=== PATIENT | female | born 1935 | race Caucasian/White ===

== ENCOUNTER 2025-03-20 17:06 | Inpatient (IN) | payer MEDICARE, OTHER, SELFPAY ==
[2025-03-19] VITALS (13 sets, daily range): BP systolic 141–204; BP diastolic 91–114; PULSE 66–76; BMI 25.5; BMI 26.9
--- NOTE | 2025-03-19 14:13 | ED.GENMED ---
History of Present Illness
<LISANDRA Merritt - Last Filed: 03/19/25 17:13>
General
Chief Complaint: Fainting/Passed Out
Source: patient
Exam Limitations: none
Time Seen by Provider: 03/19/25 14:11
Nursing documentation reviewed up to this point in time: agreed with
History of Present Illness
History of Present Illness:
89 yr. old female presents to the ED for evaluation. Daughter reports pt has 'passed out' three times in the past one month. Last night pt was apparently walking her dog and her found her on the ground outside. Pt has no PMH. per
daughter pt has had some memory isssues and is a difficulty historian. Pt describes feeling lightheaded prior to sympoms start. Denies any chest pain or palpitations prior to events PT is a poor historian.
Past History
<LISANDRA Merritt - Last Filed: 03/19/25 17:13>
Past History
ED Past Medical History: HTN
ED Past Surgical History: Appendectomy, and Gynecological (Hysterectomy)
Phy Exam
<LISANDRA Merritt - Last Filed: 03/19/25 17:13>
General Physical Exam
General Presentation: no apparent distress
General age: appears stated age
General Skin: warm and dry
General Habitus: elderly
General Mental: alert
General Hydration: appears well hydrated
Course
<LISANDRA Merritt - Last Filed: 03/19/25 17:13>
Orders/Labs/Results
Orders:
Orders
03/19/25 13:34
Electrocardiogram (*1) Urgent
Reason for Study: Syncope
03/19/25 13:35
EKG- Treatment ONCE
03/19/25 13:55
Complete Blood Count/With Diff Urgent
Comprehensive Metabolic Panel Urgent
Troponin I Urgent
03/19/25 14:23
CT Head W/o Iv Contrast Urgent
Comment:
Reason For Exam: syncope
03/19/25 14:48
Orthostatic VS- Treatment ONCE
03/19/25 15:17
0.9% Sodium Chloride 1000 ml [Nss] 1,000 ml IV BOLUS
03/19/25 15:29
UA Reflex to Culture [Urinalysis Reflex To Culture] Urgent
Date Specimen was Collected: 03/19/25
Time Specimen was Collected: 15:23
Abnormal Lab Results
03/19/25
13:55
MCH 31.2 H pg
(27.0-31.0)
MCHC 31.8 L g/dL
(33.0-37.0)
Lymphocytes % 19.7 L %
(20.5-51.1)
BUN 18 H mg/dl
(7-17)
Glucose 110 H mg/dl
(70-99)
03/19/25 13:55
03/19/25 13:55
Vital Signs
Initial and Last Documented VS:
Initial Vital Signs
Temp Pulse Resp BP Pulse Ox
98.3 F 81 20 198/114 96
03/19/25 13:30 03/19/25 13:30 03/19/25 13:30 03/19/25 13:30 03/19/25 13:30
Last Documented Vital Signs
Temp Pulse Resp BP Pulse Ox
98.3 F 87 20 184/97 96
03/19/25 13:30 03/19/25 16:45 03/19/25 16:45 03/19/25 15:14 03/19/25 16:15
Laser Print Operator consulted with Physician
Laser Print Operator consulted with physician?: Yes
Name of Physician Consulted: Eligio
<Gumaro Del Valle, DO - Last Filed: 03/19/25 15:32>
Orders/Labs/Results
Orders:
Orders
03/19/25 13:34
Electrocardiogram (*1) Urgent
Reason for Study: Syncope
03/19/25 13:35
EKG- Treatment ONCE
03/19/25 13:55
Complete Blood Count/With Diff Urgent
Comprehensive Metabolic Panel Urgent
Troponin I Urgent
03/19/25 14:23
CT Head W/o Iv Contrast Urgent
Comment:
Reason For Exam: syncope
03/19/25 14:48
Orthostatic VS- Treatment ONCE
03/19/25 15:17
0.9% Sodium Chloride 1000 ml [Nss] 1,000 ml IV BOLUS
03/19/25 15:29
UA Reflex to Culture [Urinalysis Reflex To Culture] Urgent
Date Specimen was Collected: 03/19/25
Time Specimen was Collected: 15:23
Abnormal Lab Results
03/19/25
13:55
MCH 31.2 H pg
(27.0-31.0)
MCHC 31.8 L g/dL
(33.0-37.0)
Lymphocytes % 19.7 L %
(20.5-51.1)
BUN 18 H mg/dl
(7-17)
Glucose 110 H mg/dl
(70-99)
03/19/25 13:55
03/19/25 13:55
Vital Signs
Initial and Last Documented VS:
Initial Vital Signs
Temp Pulse Resp BP Pulse Ox
98.3 F 81 20 198/114 96
03/19/25 13:30 03/19/25 13:30 03/19/25 13:30 03/19/25 13:30 03/19/25 13:30
Last Documented Vital Signs
Temp Pulse Resp BP Pulse Ox
98.3 F 87 20 184/97 96
03/19/25 13:30 03/19/25 16:45 03/19/25 16:45 03/19/25 15:14 03/19/25 16:15
<LISANDRA Merritt - Last Filed: 03/19/25 17:13>
MDM/Problems Addressed
Differential Diagnosis Includes:
Not limited to syncope, arrhythmia, head injury
MDM/Problems Addressed:
Patient is an 89-year-old female who presents for evaluation of syncope that occurred last night. Patient has had 3 syncopal episodes in the past several weeks/1 month. Patient is awake alert poor historian daughter reports mild memory issues she
does live at home with her . No obvious head injury CT head negative. Urinalysis negative no chest pain cardiac troponin negative labs unremarkable however concerning with 3 syncope episodes would recommend admission
<LISANDRA Merritt - Last Filed: 03/19/25 17:13>
*Radiology
Radiology exam reviewed: radiology read reviewed
*Pulse Oximetry
SaO2: 96
Oxygen Mode of Delivery: Room air
Patient hypoxic: no
*EKG
Interpreted by ED Provider?: Yes
Heart Rate: 76
Rate: normal
Rhythm: sinus
Ischemia: no ischemia
*Critical Care Note
Total Time (30-74mins, 75-104mins- exclusive of procedures): Not Applicable
ED Attending Note
<LISANDRA Merritt - Last Filed: 03/19/25 17:13>
-
Portions of this chart may have been created with voice recognition software.� Occasional wrong word or��sound alike� substitutions may have occurred due to the inherent limitations of voice recognition software.
<Gumaro Del Valle DO - Last Filed: 03/19/25 15:32>
ED Attending Note
Patient seen and examined by attending physician: Yes
I performed the substantive portion of visit, reviewed & personally made and approve the management plan that is documented in note by myself or EUSEBIO.: Yes
ED Attending Note:
I have seen and evaluated the patient with a [id number] encounter. I have spoken to the advance practicer provider and involved in the medical history, the physical exam, medical decision making.
Evaluation and management service: agree unless noted differently below.
Results interpretation: agree unless noted differently below.
Focused HPI: 89-year-old female presenting with several episodes of syncope. It is not quite certain per the HPI whether this is all exertional or not. There is a concern that may happen at rest as well
Physical exam: Sitting bed comfortably. Heart regular rate and rhythm. Lungs clear.
Medical Decision Making: Given the concern for possible cardiogenic syncope, will err on the side of caution and admit overnight for at least telemetry monitoring
Discharge Plan
Departure
Patient Disposition: Admit
Date of Disposition: 03/19/25
Time of Disposition: 17:08
Admit to: Telemetry
Admit to doctor: hospitlist
Presentation/result/management discussed w/ accepting MD/DO: Hospitalist
Patient with high blood pressure during this ER visit?: Yes
Condition: Fair
Covid-19: Not Applicable
Discharge Problem:
Syncope
Prescriptions:
No Action
amlodipine 10 mg Tablet
10 mg PO DAILY
Referrals:
Shanice Pleitez MD [Family Provider, Family Practice]
Interventions
Interventions:
*Risk Screen - Suicide Last Done: 03/19/25 13:30
*General Assessment Last Done: 03/19/25 13:30
*Neglect/Abuse Screening Last Done: 03/19/25 14:16
*ED- Fall Risk Assessment Last Done: 03/19/25 14:16
*ED COVID-19 Vaccine History Last Done: 03/19/25 14:16
*ED Influenza Vaccine History Last Done: 03/19/25 14:16
ED- Cardiac Assessment Last Done: 03/19/25 14:16
ED- Neurological Assessment Last Done: 03/19/25 14:16
Discharge Date and Time
Print Language: GREEK
[2025-03-19 14:19] LABS: Hematocrit 46.8 % (37.0-47.0); Hemoglobin 14.9 g/dL (12.0-16.0); Mean Corp Hgb Conc. 31.8 g/dL (33.0-37.0); Mean Corpuscular Volume 98.1 fL (81.0-99.0); Nucleated Red Blood Cells % 0 %; Red Cell Dist. Width 12.5 % (11.5-14.5)
[2025-03-19 14:21] LABS: ALT (SGPT) 15 U/L (0-35); AST (SGOT) 25 U/L (14-36); Albumin 4.6 g/dl (3.5-5.0); Alkaline Phosphatase 54 U/L (38-126); Blood Urea Nitrogen 18 mg/dl (7-17); Calcium 9.6 mg/dl (8.4-10.2); Carbon Dioxide 27 mmol/L (22-30); Chloride 103 mmol/L (98-107); Glucose 110 mg/dl (70-99); Potassium 4.4 mmol/L (3.5-5.1); Sodium 138 mmol/L (135-145); Total Protein 7.8 g/dl (6.3-8.2); eGFR > 60.00
[2025-03-19 14:28] LABS: Troponin I < 0.012 ng/ml
[2025-03-19 15:39] LABS: Urine Character Clear (Clear)
[2025-03-19] MEDS: NSS 1000 IV (15:59)
--- NOTE | 2025-03-19 17:43 | HPS.HSE ---
Addendum entered and electronically signed by Franco Lopez MD 03/19/25 18:32:
�This is an addendum to the H&P written by Nae Hernandez on 03/19/2025. �Patient seen and examined independently with PA.
89-year-old female past medical history of memory impairment, hypertension, presenting with 3 falls, possible syncopal episodes this month including last night. � found her on the ground outside after she was walking with her dog. �Symptoms
preceded by lightheadedness. �No chest pain or palpitations.
Previously on Amlodipine 10 mg.
Vital signs show blood pressure up to 204/92.
Labs unremarkable. �CT head unremarkable. �Urinalysis unremarkable.
EKG shows sinus rhythm with PACs
Patient with 3 possible syncopal episodes this month. �IV fluids were given in the ER. �Check orthostatic vital signs. �Telemetry monitoring. �Check echocardiogram.
Hypertensive urgency.� Resume amlodipine. As needed hydralazine.
Original Note:
Family Physician
-
Family Physician: Shanice Pleitez
Chief Complaint
-
Syncope / Fall
History of Present Illness
Patient is an 89 y/o female past medical history of hypertension who presents following several falls / syncopal episodes. Patient is poor historian due to underlying cognitive impairment. Family reports she has had several falls over the past few
weeks which is very unlike her. Patient is usually very active and walks frequently. Patient describes an episode where she was walking with her when she became dizzy/lightheaded and felt she may faint. She rested and the symptoms passed,
and she denies passing out following that event. Last evening she was out walking her dog, and when walking toward the house she began dizzy/lightheaded again. It is unclear if she passed out this time, but her found her lying on the
ground. Patient denies any episodes of chest pain, palpitations or shortness of breath.
Medical History
Past Medical History
Past Medical History: Reports Other
Additional Past Medical History:
Essential Hypertension
Cognitive Impairment
Past Surgical History: Reports Other
Additional Past Surgical History:
Hysterectomy
Appendectomy
Social History
Tobacco: Non-smoker
Alcohol: None
Family History
Family History: Not pertinent
Allergies / Home Medications
Allergies reflects when Allergies were last updated in [facility].
Home Medications with original date entered in [facility]
Allergy/Medication List:
Allergies
Allergy/AdvReac Type Severity Reaction Status Date / Time
No Known Allergies Allergy Unverified 03/19/25 13:32
Home Medications
No Meds [No Current Medications] 03/19/25
Review of Systems
-
A 12 point ROS was completed and negative except as noted: Yes
Constitutional: Denies Fever
Respiratory: Denies Cough or Trouble Breathing
Cardiac: Reports Syncope; Denies Chest Pain or Palpitations
Physical Exam
Vital Signs
Vital Signs
Temp Pulse Resp BP Pulse Ox
98.3 F 74 22 184/97 96
03/19/25 13:30 03/19/25 17:15 03/19/25 17:15 03/19/25 15:14 03/19/25 17:15
Physical Exam
General: Well Developed and Well Nourished
HEENT: Anicteric and Moist mucous membranes
Respiratory: Clear and Non Labored Respirations
Cardiac: S1/S2 and Regular Rhythm; No Murmur
GI: Soft and Non Tender
Rectal: Deferred by Provider
Musculoskeletal: No Clubbing, No Cyanosis and No Edema
Skin: Warm and Dry
Neuro: Awake, Alert, Oriented and No Motor Deficits
Psych: Calm
Laboratory Results
-
03/19/25 13:55
03/19/25 13:55
Laboratory Results
Total Bilirubin 0.9 mg/dl (0.2-1.3) 03/19/25 13:55
AST 25 U/L (14-36) 03/19/25 13:55
ALT 15 U/L (0-35) 03/19/25 13:55
Alkaline Phosphatase 54 U/L (38-126) 03/19/25 13:55
Troponin I < 0.012 ng/ml 03/19/25 13:55
Data Reviewed
-
CT Scan: Report Reviewed by me
Lab Data: Labs Reviewed by me
Impression/Plan
-
Recurrent Episodes of Syncope / Pre-Syncope
-Monitor on Telemetry
-Check Echocardiogram
-Check Orthostatic Vital Signs
Uncontrolled Hypertension
-Patient reports she has not taken blood pressure medications in about 2 years
-Give hydralazine 5mg IV x one dose NOW
-Resume amlodipine 5mg Daily with first dose NOW
Cognitive Impairment
-Family reports patient is very forgetful, easily get confused and sometimes has difficultly completing tasks
-Monitor for behavior changes during hospitalization
-Consult speech for formal cognitive evaluation
DVT proph: SCDs
Code Status: DNR
[2025-03-19] MEDS: NORVASC 5 MG PO (17:49)
[2025-03-19] MEDS: APRESOLINE 5 MG IV (17:49)
[2025-03-20] VITALS (11 sets, daily range): BP systolic 112–184; BP diastolic 70–106; PULSE 81–114; O2SAT 94–97
--- NOTE | 2025-03-20 04:13 | PTCARENOTE ---
Pt with high BPs 174/91, manual 162/90 house CORE DRILL OPERATOR aware.
[2025-03-20] MEDS: NORVASC 5 MG PO (10:20)
--- NOTE | 2025-03-20 12:35 | PTOTSP ---
Speech and Language Therapy
Pt seen in room for cognitive-communication assessment. Per daughter's report, pt has memory loss at baseline. Pt admitted to [facility] due to syncope episodes.�Pt scored 7.57 on Quick Aphasia Battery (QAB), yielding some deficits in sentence
comprehension and sentence repetition/recall. Normal scores fall between 8.9-10. Pt scored 7/30 on [place] Cognitive Assessment (MOCA) version 8.1 (normal >26) indicating significant cognitive deficits in comprehension, expression, orientation,
recall, attention, and reasoning. Pt provided with outpatient brochure.�
Recommend:
1.�Ongoing ST at acute care level to target cognitive deficits
2. Speech-language therapy in next level of care
--- NOTE | 2025-03-20 14:42 | W.PN.HOSP.TC ---
Addendum entered and electronically signed by Rose Ledbetter MD 03/20/25 15:31:
I saw and evaluated the patient independently. I reviewed and discussed the resident�s note and agree with findings and plan as documented by Dr. Da Silva.
GENERAL: well developed, well nourished, female in no apparent distress
HEENT: NC/AT
HEART: regular rate and rhythm, +S1, +S2
LUNGS : clear to auscultation bilaterally
ABDOM: soft, nontender, nondistended, + bowel sounds
EXT: no cyanosis, clubbing, or edema
NEUROLOGIC: apparent dementia
Recurrent episodes of syncope--unclear cause--orthostatics negative--head CT neg for acute issues--no signs of infection--await ECHO--possible due to dementia vs. medication mismanagement vs. symptomatic HTN (HTN urgency)--PT/OT recommending SNF--CM
aware--VN/PT/OT alternative possibility with 24 hour care from family
Hypertensive urgency--Hydralazine 5 mg IV and amlodipine 5 mg IV given on admittance--Resume amlodipine 5 mg daily
Cognitive impairment--apparent dementia--Monitor for behavior changes during hospitalization
DVT proph--SCDs
CODE STATUS--DNR
Original Note:
Today's Communication/Plan
-
Possibility that patient may have double dosed leading to her syncopal episodes.
PT/OT recommends SNF before returning home.
Medication reconciliation should be done and reviewed with the patient before discharge.
Emphasize the importance of taking medications regularly as prescribed (such as BP meds)
Speak to family about making changes around the parents home to reduce fall risk and allow for easy mobility.
Suggest possibility of more long-term help such as a visiting nurse.
Assessment / Plan
Assessment / Plan
Impression:
Patient is an 89-year-old female with PMH of HTN who presents following several falls/syncopal episodes.
She is a poor historian due to underlying cognitive impairment.
Patient lives alone with her in their home.
Her family reports that she h has had at least 3 falls within the last few months which is very unlike her.
Patient is usually very active and walks frequently. She describes an episode where she was walking with her when she became dizzy and felt that she might faint. She was able to rest and the symptoms eventually passed, but she denies
passing out following that event.
Last night she was out walking her dog and was walking towards her house when she began to feel dizzy and lightheaded again.
It is unclear if she passed out this time but her found her lying on the ground.
Patient currently denies any feelings of dizziness, lightheadedness, chest pain, palpitations or shortness of breath.
Plan:
#Recurrent episodes of syncope
Monitor on telemetry
Review Echo results
Orthostatic hypotension ruled out via vitals check.
#Hypertensive urgency
Hydralazine 5 mg IV and amlodipine 5 mg IV given on admittance
Resume amlodipine 5 mg daily
#Cognitive impairment
Monitor for behavior changes during hospitalization
Consult speech therapy for formal cognitive evaluation
PT/OT recommends SNF before returning home.
DVT prophylaxis: SCDs
CODE STATUS: DNR
Anticipated Discharge: Within 24 hours
Subjective/Interval History
-
Date of Service: March 20, 2025
No acute overnight events were reported.
After pre-rounding on her this morning, patient was taken for Echo.
Objective Data
-
Vital Signs:
Vital Signs
Temp Pulse Resp BP Pulse Ox
98.6 F 99 12 184/97 95
03/20/25 11:00 03/20/25 11:00 03/20/25 11:00 03/20/25 11:00 03/20/25 11:00
I&O
03/19/25 03/20/25 03/21/25
05:59 06:59 06:59
Intake Total 0 / 0
Output Total 250 / 250
Balance -250 / -[address] 03/19/2025: Impression�no acute intracranial abnormality noted.
EKG 03/19/2025: Impression�sinus rhythm with premature atrial complexes, nonspecific ST abnormality.
Urinalysis: Unremarkable.
Review of Systems
-
Unable to obtain full review of systems at this time due to: Acuity
History Source: Patient and Family
All other systems: Reviewed and negative
Physical Exam
-
General: No Apparent Distress and Comfortable
HEENT: Normocephalic and Atraumatic
Respiratory: Clear to Auscultation
Cardiac: Regular Rhythm and S1/S2
Breast: Deferred by me
GI: Soft, Nontender and Nondistended
Musculoskeletal: No Clubbing, No Cyanosis and No Edema
Skin: Warm and Dry
Neuro: AO x 3
Psych: Calm
Data Reviewed
-
CT Scan: Report Reviewed by me and Discussed with Physician
Medical Tests (Nuc Med, Echo etc): Report Reviewed by me and Discussed with Physician
Labs: Labs Reviewed by me and Discussed with Physician
--- NOTE | 2025-03-20 14:54 | CM ---
Patient seen at bedside with physicians on . Patient daughter in law also present. Patient lives with her and currently here at as OBS. CM reviewed OBS/BENTLEY form and daughter in law with daughter on phone signed form, placed on
chart. CM reviewed options and updated family that patient was seen by therapy and they recommended SNF at this time. However, due to OBS/BENTLEY status patient would be private pay if she went to SNF. Patient family considering options and lean to
having VN with family staying with patient at home. PCP is Dr. Pleitez and she uses [facility]. Patient was out walking with dog when she fell. CM will continue to follow for discharge planning needs.
Plan; home with VN vs SNF pending medical treatment plan
--- NOTE | 2025-03-20 19:03 | W.PN.HOSP.TC ---
Assessment / Plan
Assessment / Plan
Impression:
Patient is an 89-year-old female with PMH of HTN who presents following several falls/syncopal episodes.
She is a poor historian due to underlying cognitive impairment.
Patient lives alone with her in their home.
Her family reports that she h has had at least 3 falls within the last few months which is very unlike her.
Patient is usually very active and walks frequently. She describes an episode where she was walking with her when she became dizzy and felt that she might faint. She was able to rest and the symptoms eventually passed, but she denies
passing out following that event.
Last night she was out walking her dog and was walking towards her house when she began to feel dizzy and lightheaded again.
It is unclear if she passed out this time but her found her lying on the ground.
Patient currently denies any feelings of dizziness, lightheadedness, chest pain, palpitations or shortness of breath.
Plan:
#Recurrent episodes of syncope
Unclear cause
Orthostatic hypotension negative
Head CT: Negative for acute issues
No signs of infection
Echo: EF = 57%
Possibly due to dementia vs hypertensive urgency vs medication mismanagement
PT/OT: Recommendig SNF
VN/PT/OT alternative with 24 hour care from family.
#Hypertensive urgency
Hydralazine 5 mg IV and amlodipine 5 mg IV given on admittance
Resume amlodipine 5 mg daily
#Cognitive impairment
Apparent dementia
Monitor for behavioral changes during hospitalization
Consult speech therapy for formal cognitive evaluation
DVT prophylaxis: SCDs
CODE STATUS: DNR
Anticipated Discharge: 24 - 48 hours
Subjective/Interval History
-
Date of Service: March 20, 2025
Overnight Events:
Objective Data
-
Vital Signs:
Vital Signs
Temp Pulse Resp BP Pulse Ox
98 F 94 16 129/70 96
03/20/25 15:00 03/20/25 15:00 03/20/25 15:00 03/20/25 15:00 03/20/25 15:00
I&O
03/19/25 03/20/25 03/21/25
05:59 06:59 06:59
Intake Total 0 / 0 240 / 240
Output Total 250 / 250
Balance -250 / -250 240 / [address] 03/19/2025: Impression�no acute intracranial abnormality noted.
EKG 03/19/2025: Impression�sinus rhythm with premature atrial complexes, nonspecific ST abnormality.
Urinalysis: Unremarkable.
Echo :
1. Left ventricular ejection fraction is normal with an ejection fraction of 57 % by Loja's biplane method of discs.
2. Normal left ventricular size, wall thickness and systolic function. No regional wall motion abnormalities are seen.
3. Top normal to mildly dilated aortic root. Ascending aorta measures 3.8 cm.
Review of Systems
-
Unable to obtain full review of systems at this time due to: Acuity
History Source: Patient and Family
All other systems: Reviewed and negative
Physical Exam
-
General: Well Developed, Well Nourished, No Apparent Distress and Comfortable
HEENT: Normocephalic and Atraumatic
Respiratory: Clear to Auscultation
Cardiac: Regular Rhythm and S1/S2
Breast: Deferred by me
GI: Soft, Nontender and Nondistended
Musculoskeletal: No Clubbing, No Cyanosis and No Edema
Psych: Apparent Dementia
Data Reviewed
-
CT Scan: Report Reviewed by me and Discussed with Physician
Medical Tests (Nuc Med, Echo etc): Report Reviewed by me and Discussed with Physician
Labs: Labs Reviewed by me and Discussed with Physician
[2025-03-21 03:32] VITALS: BP 138/98
[2025-03-21 07:00] VITALS: BP 153/89
[2025-03-21] MEDS: NORVASC 5 MG PO (08:18)
[2025-03-21 09:06] LABS: ALT (SGPT) 14 U/L (0-35); AST (SGOT) 19 U/L (14-36); Albumin 4.2 g/dl (3.5-5.0); Alkaline Phosphatase 55 U/L (38-126); Blood Urea Nitrogen 29 mg/dl (7-17); Calcium 9.7 mg/dl (8.4-10.2); Carbon Dioxide 31 mmol/L (22-30); Chloride 102 mmol/L (98-107); Estimated Creatinine Clearance 21 ml/min; Glucose 107 mg/dl (70-99); Magnesium 2.5 mg/dl (1.6-2.3); Potassium 4.2 mmol/L (3.5-5.1); Sodium 137 mmol/L (135-145); Total Protein 6.8 g/dl (6.3-8.2); eGFR 48.33
[2025-03-21 09:56] LABS: Hematocrit 45.0 % (37.0-47.0); Hemoglobin 14.8 g/dL (12.0-16.0); Mean Corp Hgb Conc. 32.9 g/dL (33.0-37.0); Mean Corpuscular Volume 96.2 fL (81.0-99.0); Nucleated Red Blood Cells % 0 %; Red Cell Dist. Width 12.6 % (11.5-14.5)
[2025-03-21 11:31] LABS: Platelet Count 259 10^3/uL (130-400)
--- NOTE | 2025-03-21 11:40 | W.PN.HOSP.TC ---
Addendum entered and electronically signed by Rose Ledbetter MD 03/21/25 14:12:
I saw and evaluated the patient independently. I reviewed and discussed the resident�s note and agree with findings and plan as documented by Dr. Da Silva.
GENERAL: well developed, well nourished, female in no apparent distress
HEENT: NC/AT
HEART: regular rate and rhythm, +S1, +S2
LUNGS : clear to auscultation bilaterally
ABDOM: soft, nontender, nondistended, + bowel sounds
EXT: no cyanosis, clubbing, or edema
NEUROLOGIC: apparent dementia
Recurrent episodes of syncope--unclear cause--orthostatics negative--head CT neg for acute issues--no signs of infection-- ECHO with EF 57% and no other significant abnormalities--possible due to dementia, erratic/poor PO intake vs. medication
mismanagement vs. symptomatic HTN (HTN urgency)--PT/OT recommending SNF--await accepting facility
Hypertensive urgency--Hydralazine 5 mg IV and amlodipine 5 mg IV given on admittance--Resume amlodipine 5 mg daily--BPs MUCH improved
Cognitive impairment--apparent dementia--Monitor for behavior changes during hospitalization
DVT proph--SCDs
CODE STATUS--DNR
Original Note:
Today's Communication/Plan
-
Patients level of care was switched onto inpatient.
Continue on Norvasc 5 mg PO daily.
Patients family is setting up her home for post discharge.
Assessment / Plan
Assessment / Plan
Impression:
Patient is an 89-year-old female with PMH of HTN who presents following several falls/syncopal episodes.
She is a poor historian due to underlying cognitive impairment.
Patient lives alone with her in their home.
Her family reports that she h has had at least 3 falls within the last few months which is very unlike her.
Patient is usually very active and walks frequently. She describes an episode where she was walking with her when she became dizzy and felt that she might faint. She was able to rest and the symptoms eventually passed, but she denies
passing out following that event.
Last night she was out walking her dog and was walking towards her house when she began to feel dizzy and lightheaded again.
It is unclear if she passed out this time but her found her lying on the ground.
Patient currently denies any feelings of dizziness, lightheadedness, chest pain, palpitations or shortness of breath.
Plan:
#Recurrent episodes of syncope
Unclear cause
Orthostatic hypotension negative
Head CT: Negative for acute issues
No signs of infection
Echo: EF = 57%
Possibly due to dementia vs hypertensive urgency vs medication mismanagement
PT/OT: Recommendig SNF
VN/PT/OT alternative with 24 hour care from family.
#Hypertensive urgency
Hydralazine 5 mg IV and amlodipine 5 mg IV given on admittance
Resume amlodipine 5 mg daily
#Cognitive impairment
Apparent dementia
Monitor for behavioral changes during hospitalization
Consult speech therapy for formal cognitive evaluation
DVT prophylaxis: SCDs
CODE STATUS: DNR
Anticipated Discharge: 24 - 48 hours
Subjective/Interval History
-
Date of Service: March 21, 2025
No acute overnight events were reported for this patient.
Objective Data
-
Labs:
Laboratory Results
03/21/25
08:24
WBC 8.1
Hgb 14.8
Hct 45.0
Plt Count 259
Sodium 137
Potassium 4.2
Chloride 102
Carbon Dioxide 31 H
BUN 29 H
Creatinine 1.1 H
Glucose 107 H
Calcium 9.7
Total Bilirubin 1.0
AST 19
ALT 14
Alkaline Phosphatase 55
Vital Signs:
Vital Signs
Temp Pulse Resp BP Pulse Ox
98.1 F 86 12 153/89 95
03/21/25 07:00 03/21/25 08:18 03/21/25 07:00 03/21/25 08:18 03/21/25 07:00
I&O
03/20/25 03/21/25 03/22/25
06:59 06:59 06:59
Intake Total 0 / 0 360 / 360
Output Total 250 / 250
Balance -250 / -250 360 / [address] 03/19/2025: Impression�no acute intracranial abnormality noted.
EKG 03/19/2025: Impression�sinus rhythm with premature atrial complexes, nonspecific ST abnormality.
Urinalysis: Unremarkable.
Echo :
1. Left ventricular ejection fraction is normal with an ejection fraction of 57 % by Loja's biplane method of discs.
2. Normal left ventricular size, wall thickness and systolic function. No regional wall motion abnormalities are seen.
3. Top normal to mildly dilated aortic root. Ascending aorta measures 3.8 cm.
Review of Systems
-
Unable to obtain full review of systems at this time due to: Acuity
History Source: Patient and Family
All other systems: Reviewed and negative
Physical Exam
-
General: Well Developed, Well Nourished, No Apparent Distress and Comfortable
HEENT: Normocephalic and Atraumatic
Respiratory: Clear to Auscultation
Cardiac: Regular Rhythm and S1/S2
Breast: Deferred by me
GI: Soft, Nontender and Nondistended
Musculoskeletal: No Clubbing, No Cyanosis and No Edema
Psych: Apparent Dementia
Data Reviewed
-
CT Scan: Report Reviewed by me and Discussed with Physician
Medical Tests (Nuc Med, Echo etc): Report Reviewed by me and Discussed with Physician
Labs: Labs Reviewed by me and Discussed with Physician
[2025-03-21 13:25] VITALS: BP 129/79; BP 135/78; BP 135/82; PULSE 89; PULSE 92; PULSE 95
[2025-03-21 15:00] VITALS: BP 143/78
--- NOTE | 2025-03-21 16:51 | CM ---
Patient family asking for SNF; placement now inpatient. Patient family requested referral to [facility], [facility] and [facility]. referrals sent and awaiting responses. CM will continue to follow for discharge
planning needs.
Plan; SNF
[2025-03-21 16:55] VITALS: BP 143/78
[2025-03-21 23:26] VITALS: BP 168/106; BP 173/114; BP 184/105; PULSE 78; PULSE 88; PULSE 92
[2025-03-22] VITALS (7 sets, daily range): BP systolic 151–190; BP diastolic 86–110; PULSE 88–112; O2SAT 95
[2025-03-22] MEDS: NORVASC 5 MG PO (09:35)
--- NOTE | 2025-03-22 15:31 | CM ---
Patient to go to [facility], [place] tomorrow. Please call [phone] and fax [phone]. CM called to admissions and spoke with Liaison and they would accept patient at any time in the am. CM spoke with patient family and IMM completed and placed on chart.
CM will continue to follow for discharge planning needs.
Plan; transfer to [facility], [place] tomorrow pending physician assessment
--- NOTE | 2025-03-22 16:48 | PTCARENOTE ---
Pt awake and alert, oriented to self/birthdate/year; confused conversation. Needs direction with OOB activity.SONI; OOB with assist x1/walker to chair /BSC; ambulated in young with PT. VSS. On room air- pulse ox 97%, no SOB noted. Abd soft,
rounded, keya PO well. Voids on BSC. Resting in bed at present; family at bedside. Will continue to monitor.
--- NOTE | 2025-03-22 19:11 | W.PN.HOSP.TC ---
Addendum entered and electronically signed by Rose Ledbetter MD 03/22/25 20:10:
I saw and evaluated the patient independently. I reviewed and discussed the resident�s note and agree with findings and plan as documented by Dr. Da Silva.
GENERAL: well developed, well nourished, female in no apparent distress
HEENT: NC/AT
HEART: regular rate and rhythm, +S1, +S2
LUNGS : clear to auscultation bilaterally
ABDOM: soft, nontender, nondistended, + bowel sounds
EXT: no cyanosis, clubbing, or edema
NEUROLOGIC: apparent dementia
Recurrent episodes of syncope--unclear cause--orthostatics negative--head CT neg for acute issues--no signs of infection-- ECHO with EF 57% and no other significant abnormalities--possible due to dementia, erratic/poor PO intake vs. symptomatic HTN
(HTN urgency)--PT/OT recommending SNF-bed at [facility] tomorrow
Hypertensive urgency--Hydralazine 5 mg IV and amlodipine 5 mg IV given on admittance--Resume amlodipine 5 mg daily--BPs MUCH improved
Cognitive impairment--apparent dementia--Monitor for behavior changes during hospitalization
DVT proph--SCDs
CODE STATUS--DNR
Original Note:
Today's Communication/Plan
-
Continue to monitor her BP
Continue on Norvasc 5 mg PO daily.
Prepare for discharge tomorrow.
Assessment / Plan
Assessment / Plan
Impression:
Patient is an 89-year-old female with PMH of HTN who presents following several falls/syncopal episodes.
She is a poor historian due to underlying cognitive impairment.
Patient lives alone with her in their home.
Her family reports that she h has had at least 3 falls within the last few months which is very unlike her.
Patient is usually very active and walks frequently. She describes an episode where she was walking with her when she became dizzy and felt that she might faint. She was able to rest and the symptoms eventually passed, but she denies
passing out following that event.
Last night she was out walking her dog and was walking towards her house when she began to feel dizzy and lightheaded again.
It is unclear if she passed out this time but her found her lying on the ground.
Patient currently denies any feelings of dizziness, lightheadedness, chest pain, palpitations or shortness of breath.
Plan:
#Recurrent episodes of syncope
Unclear cause
Orthostatic hypotension negative
Head CT: Negative for acute issues
No signs of infection
Echo: EF = 57%
Possibly due to dementia vs hypertensive urgency vs medication mismanagement
PT recommends SNF
BP stabilizing
Patient will likely be ready for discharge tomorrow.
#Hypertensive urgency
Hydralazine 5 mg IV and amlodipine 5 mg IV given on admittance
Continue amlodipine 5 mg daily
#Cognitive impairment
Apparent dementia
Monitor for behavioral changes during hospitalization
Consult speech therapy for formal cognitive evaluation
DVT prophylaxis: SCDs
CODE STATUS: DNR
Anticipated Discharge: 24 - 48 hours
Subjective/Interval History
-
Date of Service: March 22, 2025
There were no acute overnight events reported for this patient.
As per her nurse, she was mentally waxing and waning most of the night.
Objective Data
-
Vital Signs:
Vital Signs
Temp Pulse Resp BP Pulse Ox
98.1 F 77 16 151/86 97
03/22/25 15:00 03/22/25 15:00 03/22/25 15:00 03/22/25 15:00 03/22/25 16:48
I&O
03/21/25 03/22/25 03/23/25
06:59 06:59 06:59
Intake Total 360 / 360 120 / 120 940 / 940
Balance 360 / 360 120 / 120 940 / 940
Review of Systems
-
Unable to obtain full review of systems at this time due to: Acuity
History Source: Patient and Family
All other systems: Reviewed and negative
Physical Exam
-
General: Well Developed, Well Nourished, No Apparent Distress and Comfortable
HEENT: Normocephalic and Atraumatic
Respiratory: Clear to Auscultation
Cardiac: Regular Rhythm and S1/S2
Breast: Deferred by me
GI: Soft, Nontender and Nondistended
Musculoskeletal: No Clubbing, No Cyanosis and No Edema
Psych: Apparent Dementia
Data Reviewed
-
CT Scan: Report Reviewed by me and Discussed with Physician
Medical Tests (Nuc Med, Echo etc): Report Reviewed by me and Discussed with Physician
Labs: Labs Reviewed by me and Discussed with Physician
[2025-03-23 03:00] VITALS: BP 136/103
[2025-03-23 03:19] VITALS: BP 96/73
--- NOTE | 2025-03-23 03:22 | PTCARENOTE ---
Pt's BP 136/103 in left arm and 96/73 in right arm, will continue to monitor.
[2025-03-23 07:25] VITALS: BP 159/81
[2025-03-23 08:58] LABS: Hematocrit 41.3 % (37.0-47.0); Hemoglobin 13.5 g/dL (12.0-16.0); Mean Corp Hgb Conc. 32.7 g/dL (33.0-37.0); Mean Corpuscular Volume 94.9 fL (81.0-99.0); Nucleated Red Blood Cells % 0 %; Platelet Count 226 10^3/uL (130-400); Red Cell Dist. Width 12.6 % (11.5-14.5)
[2025-03-23] MEDS: NORVASC 5 MG PO (09:16)
--- NOTE | 2025-03-23 09:32 | CM ---
Addendum entered by Cee Mota 03/23/25 13:15:
Patient seen prior to discharge, family present and happy with plan. CM will continue to follow for discharge planning needs.
Plan; transfer to [facility] today
Original Note:
Patient to go to [facility] today. Please call [phone] and fax [phone]. CM sent transportation forms to unit and await time for ambulance transportation. CM will continue to follow for discharge planning needs.
Plan; SNF today
[2025-03-23 09:37] LABS: ALT (SGPT) 12 U/L (0-35); AST (SGOT) 16 U/L (14-36); Albumin 3.7 g/dl (3.5-5.0); Alkaline Phosphatase 47 U/L (38-126); Blood Urea Nitrogen 22 mg/dl (7-17); Calcium 9.0 mg/dl (8.4-10.2); Carbon Dioxide 30 mmol/L (22-30); Chloride 104 mmol/L (98-107); Estimated Creatinine Clearance 28 ml/min; Glucose 112 mg/dl (70-99); Magnesium 2.3 mg/dl (1.6-2.3); Potassium 4.3 mmol/L (3.5-5.1); Sodium 136 mmol/L (135-145); Total Protein 6.2 g/dl (6.3-8.2); eGFR > 60.00
[2025-03-23 11:13] VITALS: BP 151/92
--- NOTE | 2025-03-23 12:11 | W.PN.HOSP.TC ---
Addendum entered and electronically signed by Rose Ledbetter MD 03/23/25 14:14:
I saw and evaluated the patient independently. I reviewed and discussed the resident�s note and agree with findings and plan as documented by Dr. Da Silva.
GENERAL: well developed, well nourished, female in no apparent distress
HEENT: NC/AT
HEART: regular rate and rhythm, +S1, +S2
LUNGS : clear to auscultation bilaterally
ABDOM: soft, nontender, nondistended, + bowel sounds
EXT: no cyanosis, clubbing, or edema
NEUROLOGIC: apparent dementia
Recurrent episodes of syncope--unclear cause--orthostatics negative--head CT neg for acute issues--no signs of infection-- ECHO with EF 57% and no other significant abnormalities--possible due to dementia, erratic/poor PO intake vs. symptomatic HTN
(HTN urgency)--PT/OT recommending SNF--bed at [facility] tomorrow
Hypertensive urgency---Resume amlodipine 5 mg daily--BPs MUCH improved
Cognitive impairment--apparent dementia--Monitor for behavior changes during hospitalization
DVT proph--SCDs
CODE STATUS--DNR
D/C to SNF
Original Note:
Today's Communication/Plan
-
Prepare patients discharge order.
Send patient with new medication Norvasc 5 mg PO Daily.
Discharge today.
Assessment / Plan
Assessment / Plan
Impression:
Patient is an 89-year-old female with PMH of HTN who presents following several falls/syncopal episodes.
She is a poor historian due to underlying cognitive impairment.
Patient lives alone with her in their home.
Her family reports that she h has had at least 3 falls within the last few months which is very unlike her.
Patient is usually very active and walks frequently. She describes an episode where she was walking with her when she became dizzy and felt that she might faint. She was able to rest and the symptoms eventually passed, but she denies
passing out following that event.
Last night she was out walking her dog and was walking towards her house when she began to feel dizzy and lightheaded again.
It is unclear if she passed out this time but her found her lying on the ground.
Patient currently denies any feelings of dizziness, lightheadedness, chest pain, palpitations or shortness of breath.
Plan:
#Recurrent episodes of syncope
Unclear cause
Orthostatic hypotension negative
Head CT: Negative for acute issues
No signs of infection
Echo: EF = 57%
Possibly due to dementia vs hypertensive urgency vs medication mismanagement
PT recommends SNF
BP stabilizing
Patient ready for discharge today.
#Hypertensive urgency
Hydralazine 5 mg IV and amlodipine 5 mg IV given on admittance
Prescribe amlodipine 5 mg PO daily for at home use
#Cognitive impairment
Apparent dementia
Monitor for behavioral changes during hospitalization
DVT prophylaxis: SCDs
CODE STATUS: DNR
Anticipated Discharge: Today
Subjective/Interval History
-
Date of Service: March 23, 2025
Last night around 3 AM, patients BP was measured at 96/73, which dropped from 136/103 from the day before. This morning after nurse rechecked BP, it was measured at 159/81, which is more on trend for this patient. No other acute overnight issues
were reported.
Objective Data
-
Labs:
Laboratory Results
03/23/25
07:48
WBC 9.3
Hgb 13.5
Hct 41.3
Plt Count 226
Sodium 136
Potassium 4.3
Chloride 104
Carbon Dioxide 30
BUN 22 H
Creatinine 0.8
Glucose 112 H
Calcium 9.0
Total Bilirubin 1.2
AST 16
ALT 12
Alkaline Phosphatase 47
Vital Signs:
Vital Signs
Temp Pulse Resp BP Pulse Ox
98.6 F 94 18 151/92 97
03/23/25 11:13 03/23/25 11:13 03/23/25 11:13 03/23/25 11:13 03/23/25 11:13
I&O
03/22/25 03/23/25 03/24/25
06:59 06:59 06:59
Intake Total 120 / 120 940 / 940
Balance 120 / 120 940 / 940
Review of Systems
-
Unable to obtain full review of systems at this time due to: Acuity
History Source: Patient and Family
All other systems: Reviewed and negative
Physical Exam
-
General: Well Developed, Well Nourished, No Apparent Distress and Comfortable
HEENT: Normocephalic and Atraumatic
Respiratory: Clear to Auscultation
Cardiac: Regular Rhythm and S1/S2
Breast: Deferred by me
GI: Soft, Nontender and Nondistended
Musculoskeletal: No Clubbing, No Cyanosis and No Edema
Psych: Apparent Dementia
Data Reviewed
-
CT Scan: Report Reviewed by me and Discussed with Physician
Medical Tests (Nuc Med, Echo etc): Report Reviewed by me and Discussed with Physician
Labs: Labs Reviewed by me and Discussed with Physician
--- NOTE | 2025-03-23 12:32 | W.DCSUMMARY ---
Addendum entered and electronically signed by Rose Ledbetter MD 03/23/25 14:43:
Read, reviewed, and agree. See same day progress note for additional details. Time spent coordinating care, DC planning, review of DC plan of care with resident, transition of care, review of records in EMR, med rec, consults, notes, d/w
consultants, nursing, family, and CM = 37 minutes
Correction to the documentation below:
Amlodipine does not come in an IV form. Neurology also was not consulted on this patient.
Therapy was consulted for the usual evaluations and it is true that they recommended a intermediate facility.
Original Note:
Discharge Summary
Discharge Data
Date of Admission: 03/20/25
Date of Discharge: 03/23/25
-
Pending Results: No
Hospital Course
Patient is an 89-year-old female with PMH of HTN who presents following several falls/syncopal episodes.
She is a poor historian due to underlying cognitive impairment.
Patient lives alone with her in their home.
Her family reports that she has had at least 3 falls within the last few months which is very unlike her.
Patient is usually very active and walks frequently. She describes an episode where she was walking with her when she became dizzy and felt that she might faint. She was able to rest and the symptoms eventually passed, but she denies
passing out following that event.
Last night she was out walking her dog and was walking towards her house when she began to feel dizzy and lightheaded again.
It is unclear if she passed out this time but her found her lying on the ground.
Patient currently denies any feelings of dizziness, lightheadedness, chest pain, palpitations or shortness of breath.
Patient displays apparent dementia. She was not as oriented to time and place as she should be.
Upon presentation to ER, patient was given Amlodipine 5 mg IV and Hydralazine 5 mg IV. Throughout her stay, she was continued on only the Amlodipine 5 mg IV daily. Patients blood pressure normalized but neurology recommended PT to consult the
patient who recommended she be d/c to a SNF. The recurrent episodes of syncope could possibly be due to dementia, poor PO intake vs symptomatic hypertension.
Discharge Plan
-
Patient Disposition: Assisted/SNF
Discharge Diagnosis/Procedures: Recurrent episodes of syncope, hypertensive urgency, cognitive impairment
Condition: Fair
Diet: Regular
Activity: With assistance and As tolerated
Driving Restrictions: No driving
Bathing Restrictions: None
Blood Work: Follow up with PCP for updated CBC and CMP in one week
Other Services: VN
Specialty Instructions: Weigh Daily- Call MD for wt gain/loss 3 lbs overnight/5 lbs in 1 week
Referrals:
Shanice Pleitez MD [Family Provider, Family Practice] - in one week
Referral Note: Update CBC and CMP
Prescriptions:
New
amlodipine 5 mg Tablet
5 mg PO DAILY Qty: 30 0RF
Discharge Orders:
Discharge Patient (As Directed); Ordered 03/23/25
Ordered By: Shelby Da Silva
Discharge Date and Time
Print Language: LATVIAN
== END 2025-03-23 13:01 | DRG 312 ==
LOC: 4 EAST ACU 17:06
PROVIDERS: Nurse Practitioner; Student in an Organized Health Care Education/Training Program; ADMITTING PHYSICIAN Hospitalist; ATTENDING PHYSICIAN Internal Medicine; EMERGENCY PHYSICIAN Student in an Organized Health Care Education/Training Program; FAMILY PHYSICIAN Family Medicine
DX: R55 Syncope and collapse (principal); I16.0 Hypertensive urgency; I10 Essential (primary) hypertension; Z66 Do not resuscitate; F03.90 Unspecified dementia, unspecified severity, without behavioral disturbance, psychotic disturbance, mood disturbance, and anxiety
CPT/HCPCS: 70450; 80053; 81003; 83735; 84484; 85025; 92507; 92523; 93005; 93306; 97116; 97163; 97167; 99285